=== PATIENT | male | born 1995 | race African-American/Black ===

== ENCOUNTER 2024-10-31 23:06 | Emergency (ER) | payer MEDICAID, OTHER ==
[~2024-10-31] VITALS: Ht 170.2 cm; Wt 68.0 kg
[2024-10-31 23:14] VITALS: O2SAT 100
[2024-10-31 23:36] VITALS: BP 125/83; PULSE 79; RESP 18; TEMP 37.3; O2SAT 100
== END 2024-10-31 23:38 | disposition home or self-care (01) ==
LOC: ER 23:06
DX: S61.412A Laceration without foreign body of left hand, initial encounter (principal); X58.XXXA Exposure to other specified factors, initial encounter; Y93.89 Activity, other specified; Y92.89 Other specified places as the place of occurrence of the external cause; Y99.8 Other external cause status
CPT/HCPCS: 12001; 99282

== ENCOUNTER 2025-05-10 10:07 | Emergency (ER) | payer MEDICAID ==
[~2025-05-10] VITALS: Ht 167.6 cm; Wt 73.0 kg
[2025-05-10 10:10] VITALS: PULSE 96; RESP 18; O2SAT 99
[2025-05-10 10:12] VITALS: BP 123/80; TEMP 36.7; O2SAT 99
[2025-05-10] MEDS ORDERED: AMOX1TAB16 MT (12:22)
[2025-05-10] MEDS ORDERED: P50 MT (12:22)
[2025-05-10] MEDS ORDERED: DIPH50CA41 MT (12:22)
[2025-05-10] MEDS ORDERED: DIPHENHYDRAMINE 50MG CAPSULE PO ONE (12:30)
[2025-05-10] MEDS: DIPHENHYDRAMINE 25MG CAPSULE PO NR (12:47)
[2025-05-10] MEDS: PREDNISONE 20MG TABLET PO ONE (12:47)
== END 2025-05-10 12:55 | disposition home or self-care (01) ==
LOC: ER 10:07
DX: K13.0 Diseases of lips (principal); Z79.899 Other long term (current) drug therapy
CPT/HCPCS: 99283; Q0163; J7512; Z7610